=== PATIENT | female | born 1930 ===

== ENCOUNTER 2018-02-17 08:03 | Inpatient (IN) ==
[2018-02-17] MEDS ORDERED: *HR* Bivalirudin 250 MG VIAL IVC ONE (08:13)
[2018-02-17] MEDS ORDERED: ISOVUE-370 200 ML INFUS..BTL ONE (08:22)
[2018-02-17] MEDS ORDERED: Nitroglycerin 1,000 MCG/10 ML VIAL IV ONE (08:22)
[2018-02-17] MEDS ORDERED: Heparin 1,000 UNITS/500 mL 500 ML ONE (08:22)
[2018-02-17] MEDS ORDERED: *HR* Heparin 10,000 UNIT/10 ML VIAL ONE (08:22)
[2018-02-17] MEDS ORDERED: 0.9 % Sodium Chloride 1,000 ML ONE ×2 (08:22→16:44)
[2018-02-17] MEDS ORDERED: *HR* Midazolam HCl 2 MG/2 ML VIAL ONE (08:25)
[2018-02-17] MEDS ORDERED: *HR* FentaNYL (PF) 100 MCG/2 ML VIAL ONE (08:31)
--- NOTE | 2018-02-17 09:39 | Invasive Diagnostic Lab Proc ---
Name: JAKOB MURRELL Date of Study: 02/17/2018 Date: 1930 Ht: 61.0in Medical Record#: [id number] Age: 87 Wt: 139.00lb Gender: Female BSA: 1.62 Order #: [id number] BMI: 26.24 Physicians Procedure Physician: Irene Metzger MD, [facility] Referring MD: Referring MD: Staff Name Position Time In Abby Norton RT 08:28 AM Ulisses Irizarry RN Traffic Division Commanding Officer 08:28 AM Marci Burciaga RN Monitor 08:28 AM Indications Indication STEMI Procedures Performed Procedure PRQ CARD REVASC WI 1 VSL L HRT ARTERY/VENTRICLE ANGIO Pre-Procedure Checklist Informed consent is complete signed and on chart. H&P is on chart. ID band is on and ID verified with patient. Patient NPO for procedure The procedure was described for the patient and questions were answered. Blood Pressure: 133/67 ECG is on chart. Rhythm: Atrial Fibrillation Plan of Care Patient will tolerate the procedure without complications. Adequate level of comfort will be maintained. Hemodynamics will remain stable Patient will recover from procedure without complications. Respiratory function will be maintained. Cardiac rhythm will remain stable. Patient temperature will be maintained. Patient and/or family have verbalized understanding of the procedure. Patient Education Chief Complaint/Reason for Test: Cardiac Cath Developmental Category: Geriatric (65+ years) Developmentally Appropriate for Age: Yes Learning Barriers: None Education Needs: Procedure Education Method: Verbal Information Taught: Cardiac Cath Educational Evaluation: Able to repeat information Intravenous Access Time IV Size Location DC'd Fluid/Drip Rate Units RN 08:28 AM 20g 1 1/4" Patent On Arrival Lt Antecubital 0.9NaCl ml/hr Ulisses Irizarry RN 08:28 AM 20g 1 1/4" Patent On Arrival Lt Hand Ulisses Irizarry RN Allergies NSAIDS (Non-Steroidal Anti-Inflamma Penicillins Sulfa (Sulfonamide Antibiotics) Vital Signs Time BP (mmHg) HR (bpm) O2 Sat. RR (bpm) LOC 08:34 AM / % 5 = Fully awake and oriented or at pre-proc level 08:34 AM / % 4 = Oriented but drowsy 08:49 AM / % 5 = Fully awake and oriented or at pre-proc level 08:31 AM 133 / 67 113 99 % 20 08:33 AM 122 / 60 100 98 % 9 08:35 AM 126 / 53 100 95 % 10 08:37 AM 114 / 59 90 94 % 15 08:39 AM 113 / 53 94 95 % 11 08:42 AM 116 / 61 92 96 % 12 08:43 AM 119 / 54 88 96 % 12 08:45 AM 115 / 55 98 96 % 11 08:47 AM 111 / 60 94 97 % 12 08:49 AM 106 / 57 86 96 % 13 08:51 AM 113 / 57 81 97 % 14 08:53 AM 107 / 53 92 98 % 17 08:55 AM 101 / 40 92 96 % 14 08:57 AM 106 / 57 85 96 % 15 08:59 AM 104 / 49 85 96 % 14 09:01 AM 91 / 43 93 94 % 13 09:04 AM 101 / 46 91 93 % 13 09:05 AM 105 / 46 86 95 % 14 09:04 AM / % 5 = Fully awake and oriented or at pre-proc level Procedural Medications Time Medication Dose Units Method Given By 08:33 AM Oxygen 2 L/min nasal cannula Ulisses Irizarry RN 08:33 AM Versed 1 mg Intravenous Ulisses Irizarry RN 08:33 AM Fentanyl 25 mcg Intravenous Ulisses Irizarry RN 08:37 AM Lidocaine 2% 12 ml Subcutaneous Irene Metzger MD, FACC 08:43 AM Angiomax 0.75mg/kg bolus: 10 ml Intravenous Ulisses Irizarry RN 08:43 AM Angiomax 1.75mg/kg/hr: 23 ml/hr Intravenous Ulisses Irizarry RN 08:59 AM Nitroglycerin 200 mcg Intracoronary Irene Metzger MD, FACC ASA Classification: Emergent Procedure: ASA score is assumed Ludin Score Preprocedure Postprocedure Activity 2- Moves 4 extremities sustained head lift Activity 2- Moves 4 extremities sustained head lift Circulation 2- SBP +/= 20 points of pre-anesthetic level Circulation 2- SBP +/= 20 points of pre-anesthetic level Consciousness 2- Awake and alert oriented x 3 Consciousness 2- Awake and alert oriented x 3 O2 Saturation 2- Able to maintain O2 satruation of 92% on room air O2 Saturation 2- Able to maintain O2 satruation of 92% on room air Respiratory 2- Able to deep breathe and cough well Respiratory 2- Able to deep breathe and cough well Total Score 10 Total Score 10 Contrast Agent: Isovue Diagnostic Contrast: 153 ml Total Contrast: 153 ml Fluoro Dose: 9311 mGy Procedure Log Time Note Enter By 08:27 AM Physican paged/called 08:27. [email or web address] 08:27 AM Pt arrived to clinical laboratory manager 2 at 08:27 [email or web address] 08:28 AM Abby Norton RT Position: Time in: 08:28 [email or web address] 08:28 AM Ulisses Irizarry RN Position: Traffic Division Commanding Officer Time in: 08:28 [email or web address] 08:28 AM Marci Burciaga RN Position: Monitor Time in: 08:28 [email or web address] 08:28 AM Patient charges- Angio tray pack, Navilyst 3mm J, Pulse Oximetry and ACIST tubing and transducer [email or web address] 08:29 AM Case Delayed No [email or web address] 08:31 AM Vitals capture started with the following parameters, Patient=Adult, Interval=5 min, Initial Hfjzjwxx=808 mmHg, Deflation Rate=5 mmHg, Cuff placed on Right Arm 08:31 AM RP=239 bpm, GIAI=494/67 mmhg, SpO2=99.0 %, Gtgn=417 B/min, EtCO2=35 mmHg, Comment=Afib 08:32 AM Physician arrived 08:32 [email or web address] 08:32 AM Meet and greet completed [email or web address] 08:32 AM Recorded ECG: NQ=653 Condition=Condition 1 08:33 AM Sign in performed according to hospital policy. Informed consent was obtained. [email or web address] 08:33 AM Procedure start 08:33 [email or web address] 08:33 AM Time: 08:33 Oxygen on at 2 L/min per nasal cannula by Ulisses Irizarry RN [email or web address] 08:33 AM Time: 08:33 Versed 1 mg Intravenous Given by Ulisses Irizarry RN [email or web address] 08:33 AM AG=054 bpm, ADYZ=532/60 mmhg, SpO2=98.0 %, Resp=9 B/min, EtCO2=35 mmHg, Comment=Afib 08:33 AM Time: 08:33 Fentanyl 25 mcg Intravenous Given by Ulisses Irizarry RN [email or web address] 08:33 AM Time: 08:33 Patient comfortable and pain free: Yes [email or web address] 08:34 AM Time: 08:34LOC: 5 = Fully awake and oriented or at pre-proc level [email or web address] 08:34 AM Clinical Presentation: STEMI or equivalent [email or web address] 08:34 AM Recorded ECG: HR=93 Condition=Condition 1 08:35 AM Pressure channel 1 zeroed. 08:35 AM WQ=082 bpm, JCJH=334/53 mmhg, SpO2=95.0 %, Resp=10 B/min, EtCO2=35 mmHg, Comment=Afib 08:36 AM Time out was performed according to hospital policy. Conscious sedation and anesthesia was achieved (see medication log with in this report above) [email or web address] 08:36 AM Critical cardiac patient with acute WI was brought emergently to the cardiac labor commissioner for immediate coronary angiography and intervention if clinically indicated. [email or web address] 08:37 AM Time: 08:37 12 ml Lidocaine 2% to right groin Subcutaneous Given by Irene Metzger MD, [facility] [email or web address] 08:37 AM HR=90 bpm, RUMG=996/59 mmhg, SpO2=94.0 %, Resp=15 B/min, EtCO2=32 mmHg, Comment=Afib 08:38 AM Access obtained by percutaneous puncture. 6Fr 10cm [place] sheath placed in right Femoral artery. [id number] [email or web address] 08:38 AM 5Fr FL 4 [email or web address] 08:38 AM 0.035 145cm Navilyst 3mmJ wire [id number] [email or web address] 08:38 AM LCA angiography performed in multiple views. [email or web address] 08:38 AM Recorded Pressure: Ao, HR=91, Condition=Condition 1 (Aorta) Ao 90/52/71 08:39 AM HR=94 bpm, GPTG=656/53 mmhg, SpO2=95.0 %, Resp=11 B/min, EtCO2=35 mmHg, Comment=Afib 08:40 AM Recorded Pressure: Ao, HR=96, Condition=Condition 1 (Aorta) Ao 91/53/71 08:41 AM [email or web address] 08:42 AM 5Fr FR 4 catheter [facility] over the wire [email or web address] 08:42 AM RCA angiography performed in multiple views. [email or web address] 08:42 AM HR=92 bpm, LTWM=431/61 mmhg, SpO2=96.0 %, Resp=12 B/min, EtCO2=35 mmHg, Comment=Afib 08:42 AM Recorded Pressure: Ao, HR=89, Condition=Condition 1 (Aorta) Ao 94/55/73 08:43 AM Catheter removed [email or web address] 08:43 AM Time: 08:43 Angiomax 0.75mg/kg bolus: 10 ml Intravenous Given by Ulisses Irizarry RN Carroll pump [email or web address] 08:43 AM HR=88 bpm, DAPW=306/54 mmhg, SpO2=96.0 %, Resp=12 B/min, EtCO2=32 mmHg, Comment=Afib 08:44 AM Time: 08:43 Angiomax 1.75mg/kg/hr: 23 ml/hr Intravenous Given by Ulisses Irizarry RN Carroll pump [email or web address] 08:44 AM PCI Status Emergency [email or web address] 08:44 AM PCI lesion in 1st Diagonal. [email or web address] 08:44 AM 6Fr XB LAD 3.5 [place] Bright-Tip guide catheter was used to cannulate the PCI vessel successfully. reused? No [email or web address] 08:45 AM .014 Prowater 180cm guide wire across target lesion- successful. reused? No [email or web address] 08:45 AM HR=98 bpm, XBVE=020/55 mmhg, SpO2=96.0 %, Resp=11 B/min, EtCO2=35 mmHg, Comment=Afib 08:45 AM Coronary Dominance: right [email or web address] 08:46 AM Recorded Pressure: Ao, AN=624, Condition=Condition 1 (Aorta) Ao 94/58/75 08:47 AM HR=94 bpm, MUVG=624/60 mmhg, SpO2=97.0 %, Resp=12 B/min, EtCO2=35 mmHg, Comment=Afib 08:48 AM 2.0 mm x 15 mm Emerge Monorail balloon across target lesion- successful. reused? No [email or web address] 08:48 AM Recorded Pressure: Ao, HR=88, Condition=Condition 1 (Aorta) Ao 91/49/68 08:48 AM Balloon inflated @ 6 valdo for 20 seconds [email or web address] 08:49 AM Time: 08:34LOC: 4 = Oriented but drowsy [email or web address] 08:49 AM Time: 08:33 Patient comfortable and pain free: Yes [email or web address] 08:49 AM HR=86 bpm, GGFR=283/57 mmhg, SpO2=96.0 %, Resp=13 B/min, EtCO2=32 mmHg, Comment=Afib 08:50 AM Balloon inflated @ 8 valdo for 20 seconds [email or web address] 08:51 AM Balloon inflated @ 10 valdo for 30 [email or web address] 08:51 AM HR=81 bpm, UJNC=257/57 mmhg, SpO2=97.0 %, Resp=14 B/min, EtCO2=32 mmHg, Comment=Afib 08:53 AM HR=92 bpm, FAYE=064/53 mmhg, SpO2=98.0 %, Resp=17 B/min, EtCO2=32 mmHg, Comment=Afib 08:54 AM Balloon catheter removed intact. [email or web address] 08:55 AM HR=92 bpm, NJGY=493/40 mmhg, SpO2=96.0 %, Resp=14 B/min, EtCO2=32 mmHg, Comment=Afib 08:56 AM 2.25mm x 16mm Synergy drug-eluting stent across target lesion- successful Lot #[id number] [email or web address] 08:57 AM HR=85 bpm, MNQH=309/57 mmhg, SpO2=96.0 %, Resp=15 B/min, EtCO2=32 mmHg, Comment=Afib 08:57 AM Stent deployed @ 11 valdo for 30 seconds [email or web address] 08:59 AM Time: 08:59 Nitroglycerin 200 mcg Intracoronary Given by [facility] MD, [facility] 08:59 AM HR=85 bpm, UJAS=591/49 mmhg, SpO2=96.0 %, Resp=14 B/min, EtCO2=32 mmHg, Comment=Afib 09:01 AM Stent delivery system removed intact. [email or web address] 09:01 AM Guide wire removed intact. [email or web address] 09:01 AM Guide catheter removed intact. [email or web address] 09:01 AM Pressure channel 1 zero failed. 09:01 AM 5Fr Pigtail catheter [facility] the [email or web address] 09:01 AM Catheter crossed the aortic valve and was selectively placed in the left ventricle. Pressures recorded on pullback for left heart catheterization. [email or web address] 09:01 AM Pressure channel 1 zeroed. 09:01 AM Bolus angiogram of left Ventricle complete: 8 ml/sec for a total of 24 mls [email or web address] 09:01 AM Recorded Pressure: LV, HR=86, Condition=Condition 1 (Left Ventricle) LV 87/2/9 09:01 AM HR=93 bpm, NIBP=91/43 mmhg, SpO2=94.0 %, Resp=13 B/min, EtCO2=35 mmHg, Comment=Afib 09:02 AM Recorded Pressure: LV, Ao, HR=89, Condition=Condition 1 (Left Ventricle) LV 73/21/21, (Aorta) Ao 71/47/59 09:03 AM Catheter removed [email or web address] 09:04 AM Bolus angiogram of right Femoral complete: 4 ml/sec for a total of 7 mls [email or web address] 09:04 AM HR=91 bpm, PZHW=813/46 mmhg, SpO2=93.0 %, Resp=13 B/min, EtCO2=35 mmHg, Comment=Afib 09:04 AM Time: 08:49 Patient comfortable and pain free: Yes [email or web address] 09:04 AM Time: 08:49LOC: 5 = Fully awake and oriented or at pre-proc level [email or web address] 09:04 AM Procedure completed at 09:04 02/17/2018 [email or web address] 09:05 AM Did you address REGINA flow and Dominance? Yes [email or web address] 09:05 AM Sign out completed: Radiation Dose 866.05 mGy, 9311.03 cGy/cm2 Fluoro Time: 8.7 Isovue 370 - 200ml contrast 153 ml given by Irene Metzger MD, [facility]. Complications: None. The patient was discharged out of the labor commissioner in stable condition. Cardiac Rehab Consult needed: YesConfirmed administered medications: Yes [email or web address] 09:05 AM HR=86 bpm, KPKH=640/46 mmhg, SpO2=95.0 %, Resp=14 B/min, EtCO2=35 mmHg, Comment=Afib 09:07 AM Isovue 370 - 200ml,1 Bottle(s) used. [email or web address] 09:07 AM Sheath left in place to be pulled on floor/holding area [email or web address] 09:14 AM Lesion found in 1st Diagonal. Pre Stenosis: 100 Pre REGINA Flow: 0: No Flow/No perfusion [email or web address] 09:15 AM Lesion found in Proximal RCA. Pre Stenosis: 40 [email or web address] 09:15 AM Lesion found in Mid RCA. Pre Stenosis: 25 [email or web address] 09:15 AM Lesion found in Proximal LMCA. Pre Stenosis: 40 [email or web address] 09:15 AM Lesion found in Proximal LAD. Pre Stenosis: 40 [email or web address] 09:15 AM Lesion found in Proximal Circumflex. Pre Stenosis: 30 [email or web address] 09:15 AM Lesion found in Ramus. Pre Stenosis: 20 [email or web address] 09:16 AM Left Main Coronary Artery with 40% stenosis [email or web address] 09:16 AM Proximal Left Anterior Descending Coronary Artery with 40% stenosis. [email or web address] 09:17 AM Mid/Distal Left Anterior Descending Coronary Artery and diagonal branches with 100% stenosis. [email or web address] 09:17 AM Circumflex, Obtuse Marginal, Left Posterior Descending, and Left Posterolateral Coronary Arteries with 30 % stenosis. [email or web address] 09:17 AM Ramus with 20% stenosis. [email or web address] 09:17 AM Right Coronary, Right Posterior Descending Arteries with Right Posterolateral and Acute Marginal branches with 40 % stenosis. [email or web address] 09:18 AM Estimated Blood Loss: minimal [email or web address] 09:18 AM Post ECG Atrial Fibrillation [email or web address] 09:18 AM Post Blood Pressure 105/46 [email or web address] 09:19 AM 09:18 Post Pulses Bilateral DP & PT 1+ [email or web address] 09:19 AM Information taught Cardiac Cath and PCI [email or web address] 09:19 AM Education needs Procedure, Plan of Care, and Safe & Effective Use of Medications [email or web address] 09:19 AM Time: 09:04LOC: 5 = Fully awake and oriented or at pre-proc level [email or web address] 09:19 AM Time: 09:04 Patient comfortable and pain free: Yes [email or web address] 09:19 AM Learning barriers :None [email or web address] 09:19 AM Education Methods Verbal [email or web address] 09:19 AM Education evaluation Able to repeat information [email or web address] 09:20 AM Site status No bleeding/hematoma - Rt Groin as reported by Abby Norton RT at 09:19 [email or web address] 09:20 AM Opsite applied [email or web address] 09:20 AM Report given to Rosario GOMEZ Pt taken to ICU Room #8. 09:20 [email or web address] 09:22 AM Plavix, Effient or Brilinta given Yes at Nath [email or web address] 09:22 AM Delay to floor No [email or web address] 09:22 AM Patient out of room: 09:22 [email or web address] 09:22 AM Family placed in consult room. [email or web address] 09:22 AM Complications: None [email or web address] Complications Complication None Hemodynamics Pressures Site Systolic/A Wave Diastolic/V Wave Mean AO 90 52 71 AO 91 53 71 AO 94 55 73 AO 94 58 75 AO 91 49 68 LV 87 2 9 LV 73 21 21 AO 71 47 59 Post Procedure Information Blood Pressure: 105/46 mmHg Rhythm: Atrial Fibrillation Post procedural instructions were given Site Checks Time Location Status Staff Sheath In? Note 09:19 AM Rt Groin No bleeding/hematoma Abby Norton RT Pulses Time Site Pre-Procedure Post-Procedure Note 02/17/2018 8:28:00 AM Bilateral DP & PT 1+ 02/17/2018 8:28:00 AM Bilateral radial 2+ 9:18:00 AM Bilateral DP & PT 1+ Updated by Luz Wisdom, RT(R) on 02/17/2018 9:28:58 AM electronically signed on 02/17/2018 9:29:51 AM with status of Final
--- NOTE | 2018-02-17 09:41 | Cardiology History & Physical ---
Addendum entered and electronically signed by Irene Metzger MD 02/17/18 15:29: I have personally performed a face to face evaluation on this patient. I have reviewed and agree with the care plan. History and Exam by me shows: Pt presents with acute lateral STEMI. Taken emergently to cardiac catheterization lab- had 100% occluded diagonal 1 with acute thrombus. Successful PCI with CLOTILDE. EF 40%. Nonobstructive disease in RCA, Cx, LAD. DAPT. Further recommendations pending clinical course. Original Note: Date of Encounter: 02/17/18 Time of Encounter: 09:37 Assessment and Plan (1) STEMI (ST elevation myocardial infarction) Current Visit: Yes Status: Acute Per cardiology: -Admitted from outside facility with acute lateral STEMI. -Transferred to [facility] for emergent LHC, risk versus benefits of LHC explained to patient who is agreeable to proceed. -Troponin 0.04 outside facility. -Further recommendations pending LHC. -Will check TTE. -Will continue to monitor. -Discussed and reviewed with patient and daughter. Qualifiers: Involved coronary artery: other coronary artery Qualified Code(s): I21.29 - ST elevation (STEMI) myocardial infarction involving other sites (2) CKD (chronic kidney disease) Current Visit: Yes Status: Chronic Per cardiology: -Known CKD, creatinine from outside facility 1.2 -Will continue to monitor. Qualifiers: Chronic kidney disease stage: unspecified stage Qualified Code(s): N18.9 - Chronic kidney disease, unspecified History of Present Illness Chief complaint: Chest pain HPI: Ms. MURRELL is a 87 year old female with a relevant past medical history of rheumatoid arthritis, CKD who presented to [facility] with complaints of chest pain. Per daughter, patient was in her normal state of health, last night and went to bed. Patient awoke this morning arounf 0530 complaining of chest pain. Reports associated nausea, diaphoresis. Patient called for her daughter. Daughter encouraged her to call the squad and squad was called around 0630. Patient was taken to [facility] where ECG showed acute lateral STEMI and patient was transferred emergently to [facility] for emergent LHC. Past Med Surg Social Fam HX - Past Medical History Attestation: Yes The following information was validated with the patient. Source: patient, obtained from family Medical history: RA, renal disease Psychiatric history: no psych history - Past Surgical History Surgical History: non-contributory - Social History Smoking Status: Never smoker Alcohol use: none Drug use: none Current living situation: Home, With Family Activity Level: Independent ambulation Recent Out of Country Travel Within the Last 8 Weeks: No Exposure or Possible Exposure to Illness During Travel: No - Additional Family History Additional family history: Non-contributory Medications and Allergies Allergy/AdvReac Type Severity Reaction Status Date / Time NSAIDS (Non-Steroidal Allergy See Verified 02/17/18 08:11 Anti-Inflamma Comments Penicillins Allergy See Verified 02/17/18 08:11 Comments Sulfa (Sulfonamide Allergy See Verified 02/17/18 08:11 Antibiotics) Comments All Systems Review: The remainder of the systems were reviewed and are negative - Cardiovascular Cardiovascular: as per HPI, chest pain at rest, diaphoresis - Gastrointestinal Gastrointestinal: nausea Physical Examination Vital Signs Pulse Rate 81 02/17/18 09:25 Temperature 96.2 F L 02/17/18 09:39 Pulse Rate 89 02/17/18 09:40 Respiratory Rate 16 02/17/18 09:39 Blood Pressure 108/69 02/17/18 09:39 O2 Sat by Pulse Oximetry 96 02/17/18 09:39 General: Conversant, No Apparent Distress HEENT: Atraumatic, Normocephaly, Mucus Membranes Moist Neck: No JVD, Normal carotid pulses Cardiac: Reg Rate and Rhythm, Normal S1 and S2, No Murmur Lungs: Normal Breath Sounds, No Wheeze, Rales, Rhonchi Neuro: Alert and responsive, No focal deficits noted Abdomen: Soft, Non-Tender Skin: No rashes noted on visualized skin Musculoskeletal: No Chest Wall Tenderness Extremities: No Clubbing, No Cyanosis, No Edema, Normal Pulses Results - Imaging and Cardiology Echo: pending Cardiac cath: pending - EKG Interpretation EKG results cardiology: personally reviewed (ECG with acute lateral STEMI)
[2018-02-17] MEDS ORDERED: Nitroglycerin 0.4 MG TAB.SUBL SL PRN (10:29)
[2018-02-17] MEDS ORDERED: *HR* Morphine 2 MG/ML SYRINGE IVP PRN (10:29)
[2018-02-17] MEDS ORDERED: *HR* Atropine Sulfate 1 MG/10 ML SYRINGE ONE (16:43)
[2018-02-17 18:12] LABS: Basophils % 0.1 %; Hematocrit 31.2 % (35.3-44.9); Hemoglobin 10.8 g/dL (11.5-15.4); Immature Granulocytes % 0.3 % (0-4); Lymphocytes # 0.3 K/mcL (0.6-4.6); Lymphocytes % 4.3 %; Mean Corpuscular HGB Conc 34.6 g/dL (31.6-35.5); Mean Corpuscular Hemoglobin 30.5 pg (28.0-33.3); Mean Corpuscular Volume 88.1 fL (83.0-100.0); Mean Platelet Volume 10.7 fL (9.4-12.4); Monocytes # 0.3 K/mcL (0.0-1.3); Monocytes % 4.3 %; Neutrophils # 6.1 K/mcL (1.6-8.9); Platelet Count 267 K/mcL (140-400); Red Blood Count 3.54 M/mcL (3.82-4.97)
[2018-02-17 18:44] LABS: Calcium 9.3 mg/dL (8.6-10.3); Potassium 4.2 mEq/L (3.5-5.1)
[2018-02-17] MEDS ORDERED: Perflutren Lipid Microsphere 1.3 ML in 0.9 % Sodium Chloride 8.7 ML IVP ONE (21:07)
[2018-02-18 03:43] LABS: Basophils % 0.4 %; Eosinophils % 0.1 %; Hematocrit 30.4 % (35.3-44.9); Hemoglobin 10.3 g/dL (11.5-15.4); Immature Granulocytes % 0.7 % (0-4); Immature Platelets 5.6 % (1.1-6.1); Lymphocytes # 0.9 K/mcL (0.6-4.6); Lymphocytes % 11.5 %; Mean Corpuscular HGB Conc 33.9 g/dL (31.6-35.5); Mean Corpuscular Hemoglobin 29.9 pg (28.0-33.3); Mean Corpuscular Volume 88.1 fL (83.0-100.0); Mean Platelet Volume 10.9 fL (9.4-12.4); Monocytes # 1.1 K/mcL (0.0-1.3); Neutrophils # 5.6 K/mcL (1.6-8.9); Platelet Count 264 K/mcL (140-400); Red Blood Count 3.45 M/mcL (3.82-4.97); Red Cell Distribution Width 12.2 % (11.5-14.5); Segmented Neutrophils % 73.3 %
[2018-02-18 04:00] LABS: Calcium 9.1 mg/dL (8.6-10.3)
[2018-02-18] MEDS ORDERED: Ipratropium/Albuterol Neb 3 ML IH PRN (05:03)
[2018-02-18] MEDS ORDERED: Furosemide 20 MG/2 ML VIAL IVP ONE ×2 (05:35→17:00)
--- NOTE | 2018-02-18 05:59 | Event Note ---
Date of Encounter: 02/18/18 Time of Encounter: 05:35 At around 0500 I was asked by nurse to evaluate the patient. Earlier in the night, she had two episodes where her oxygen saturation decreased to low 80s, requiring high flow oxygen. During both episodes, it took about 20 minutes for the patient's oxygen saturation to come back up to 90s. Patient ended up needing 15L oxymask and her oxygen saturation was 98%. I was told by nurse that she had spoken to Dr. Lopes on the phone, who wanted medicine team to evaluate the patient. Upon my examination, patient was laying in bed comfortably wearing oxymask. She denies chest pain, chest tightness, or cough. She does report intermittent shortness of breath. Upon auscultation of the lungs, she mostly had overall decreased breath sounds with fine rales present on the left side. My initial concern was that the patient's shortness of breath was due to fluid overload. Stat portable Xray was ordered, which showed increased vascular markings with pulmonary edema and pleural effusions. Patient was given 1 DuoNeb with improvement in her symptoms. one time dose of 20mg IV lasix ordered. Dr. Pan examined patient around 0530 and agrees with this plan. Further management of patient per cardiology.
[2018-02-18] MEDS: Aspirin 81 MG TAB.CHEW PO SCH (08:01)
--- NOTE | 2018-02-18 11:57 | Cardiology Progress Note ---
Addendum entered and electronically signed by Donte Parada MD 02/18/18 15:28: I have personally performed a face to face evaluation on this patient. I have reviewed and agree with the documented findings and care plan as documented by the [facility] [place]. History and Exam by me shows: 87-year-old female with lateral wall AK status post CLOTILDE to D1 yesterday. Doing well. No chest pain palpitations or shortness of breath. Short run of NSVT noted on telemetry. LVEF 30-35%. Continue dual antiplatelets, ROSANA inhibitor and beta mike and titrate upwards as blood pressure allows. Moderate dose statin. Monitor and replace electrolytes keeping potassium above 4 and magnesium above 2. Outpatient referral for cardiac rehabilitation. Thanks, Donte Parada MD Original Note: Date of Encounter: 02/18/18 Time of Encounter: 09:00 Assessment and Plan (1) STEMI (ST elevation myocardial infarction) Current Visit: Yes Status: Acute Per cardiology: -Admitted from outside facility with acute lateral STEMI. -Transferred to [facility] for emergent LHC. -LHC with 40% proximal left main, 40% proximal LAD, 100% diagonal 1 with CLOTILDE placed, 30% proximal circumflex aneurysmal, 40% proximal RCA, 25% mid RCA. -Denies current chest pain. -Right groin access site without hematoma. Dressing clean, dry, intact. -ON asa, plavix, statin, BB. Educated on dual anti-platelet therapy uninterrup clau for at least one year, states understanding. -TTE with LVEF 30-35%. -Will continue to monitor. Qualifiers: Involved coronary artery: other coronary artery Qualified Code(s): I21.29 - ST elevation (STEMI) myocardial infarction involving other sites (2) CKD (chronic kidney disease) Current Visit: Yes Status: Chronic Per cardiology: -Known CKD, creatinine from outside facility 1.2 -Creatinine today 1.25. -Will continue to monitor. Qualifiers: Chronic kidney disease stage: unspecified stage Qualified Code(s): N18.9 - Chronic kidney disease, unspecified (3) NSVT (nonsustained ventricular tachycardia) Current Visit: Yes Status: Acute Per cardiology: -Overnight, had one run of NS VT, lasting 13 beats. -K 4.0. -Mg noted to be 1.7. -On BB. -Will increase BB. -Will give oral Mg replacement. -Recommend K >4, Mg >2. -Will re-check electrolytes in am, (4) CHF (congestive heart failure) Current Visit: Yes Status: Acute Per cardiology: -Episode of repsiratory distress this am. -CHest x-ray with CHF. -BNP 1300s. -Was given IV lasix x1. -Reprots symptom improvement. However, rhonchi noted upon respiratory exam. -TTE with LVEF 30-35%, severe segmental LV systolic dysfunction, moderately dilated LA, midl AR, mild-moderate MR, moderate TR, mild-moderate MO, mild PH. -ON BB, rosana inhibitor. -Will give another IV lasix this evening. -Will increase BB, and switch to toprol in am. -Strict i/so, fluids restriction, daily weights. -Recommend repeating TTE in 45 days post [place]. Qualifiers: Heart failure type: systolic Heart failure chronicity: acute Qualified Code(s): I50.21 - Acute systolic (congestive) heart failure (5) A-fib Current Visit: Yes Status: Acute Per cardiology: -A.fib noted per telemetry, HR controlled. -no previoous history of a.fib. -[id number] score 5 (age3, gender, CHF, vascular disease). -Currently on BB, asa. -Will obtain 12 lead ECG to confirm a.fib. 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 -Will continue to monitor. Qualifiers: Atrial fibrillation type: unspecified Qualified Code(s): I48.91 - Unspecified atrial fibrillation Discussion w patient/family: The assessment and plan as outlined above was discussed with the patient and/or family members who expressed understanding and agreement. All questions were answered. Thank you for involving us in the care of your patient. Please call with any questions. Discussed and reviewed with . Subjective Principal diagnosis: STEMI Interval history: Patient denies chest pain this morning. Notes reviewed with acute episode of respiratory distress this am. Currently on oximask, patient reports breathing is much improved. Objective Vital Signs, Last 4 Hours Pulse Resp BP Pulse Ox 02/18/18 11:00 70 69 125/64 96 02/18/18 10:00 71 16 125/70 100 02/18/18 09:00 80 18 95/67 99 02/18/18 08:00 99 20 144/90 95 General: Conversant, No Apparent Distress HEENT: Atraumatic, Normocephaly, Mucus Membranes Moist Neck: No JVD, Normal carotid pulses Cardiac: Reg Rate and Rhythm, Normal S1 and S2, No Murmur Lungs: Other (Rhonchi noted throughout. ) Neuro: Alert and responsive, No focal deficits noted Abdomen: Soft, Non-Tender Skin: No rashes noted on visualized skin, Other (Right groin access site without hematoma. Dressing clean, dry, intact. ) Musculoskeletal: No Chest Wall Tenderness Extremities: No Clubbing, No Cyanosis, No Edema, Normal Pulses Results 02/18/18 03:29 02/18/18 03:29 Lab Results Impressions Echocardiogram 02/17/18 10:30 Impressions: LVEF 30-35%. Severe segmental left ventricular systolic dysfunction. Mild concentric left ventricular hypertrophy. Indeterminate diastolic function. Normal right ventricular structure and function. Moderately dilated left atrium. Mild aortic regurgitation. Mild-moderate mitral regurgitation. Moderate tricuspid regurgitation. Mild-moderate pulmonic regurgitation. Mild pulmonary hypertension. Cardiology team notified. Left Ventricular Wall Motion: Rest Echo Findings The apex, apical anterior, mid anterior, basal anterior, apical septal, apical lateral, mid anterior lateral, basal anterior lateral and mid anterior septal jones were hypokinetic. All other wall segments showed normal motion. Findings: Study Quality * Technically adequate exam. ECG Findings * Atrial fibrillation, RVR Left Ventricle * LVEF 30-35%. * Normal LV chamber size. * Mild concentric left ventricular hypertrophy. * Severe segmental left ventricular systolic dysfunction. * Indeterminate diastolic function. * Definity echo contrast was used. * There is no LV thrombus. Right Ventricle * Normal right ventricular structure and function. Left Atrium * Moderately dilated left atrium. Right Atrium * Normal right atrial size. Interatrial Septum * Interatrial septum not well evaluated. Aortic Valve * Normal aortic valve structure. * Trileaflet aortic valve. * Mild aortic regurgitation. * No aortic stenosis. Mitral Valve * Moderately calcified mitral valve leaflets. * Mild-moderate mitral regurgitation. * Mild mitral annular calcification Tricuspid Valve * Normal tricuspid valve structure. * No tricuspid stenosis. * Moderate tricuspid regurgitation. * Estimated RVSP is 40 mmHg. * Estimated RA pressure is 5 mmHg. * Mild pulmonary hypertension. Pulmonic Valve * Normal pulmonic valve structure. * No pulmonic stenosis. * Mild-moderate pulmonic regurgitation. Aorta * Normally sized aortic root. Pericardium * The pericardium appears normal. IVC * Normal IVC dimensions and inspiratory collapse. Chest X-Ray 02/18/18 04:53 IMPRESSION: Findings likely represent congestive heart failure. D/ / Tera Carbone MD / Tera Carbone MD Interpreting Provider: Tera Carbone MD Active Medications Acetaminophen (Tylenol) 500 mg PO Q6HR PRN PRN Reason: Mild Pain Stop: 08/19/18 10:30 Aspirin (Aspirin) 81 mg PO DAILY [facility] Stop: 08/20/18 09:01 Last Admin: 02/18/18 08:01 Dose: 81 mg Atorvastatin Calcium (Lipitor) 40 mg PO HS [facility] Stop: 08/19/18 21:01 Last Admin: 02/17/18 21:34 Dose: 40 mg Clopidogrel Bisulfate (Plavix) 75 mg PO DAILY [facility] Stop: 08/20/18 09:01 Last Admin: 02/18/18 08:01 Dose: 75 mg Furosemide (Lasix) 20 mg IVP ONCE ONE Stop: 02/18/18 17:01 Lisinopril (Zestril) 2.5 mg PO DAILY [facility] Stop: 08/20/18 09:01 Last Admin: 02/18/18 08:01 Dose: 2.5 mg Magnesium Oxide (Mag-Ox) 400 mg PO BID [facility]; Protocol Stop: 08/20/18 12:01 Metoprolol Succinate (Toprol Xl) 50 mg PO DAILY [facility] Stop: 08/21/18 09:01 Metoprolol Tartrate (Lopressor) 50 mg PO ONCE ONE Stop: 02/18/18 21:01 Morphine Sulfate (Morphine Sulfate) 4 mg IVP Q3H PRN PRN Reason: Severe Pain (7-10) Stop: 08/19/18 10:30 Nitroglycerin (Nitroglycerin) 0.4 mg SL Q5MIN PRN PRN Reason: Chest Pain Stop: 08/19/18 10:30 Laboratory Tests 02/18/18 02/18/18 02/18/18 03:29 03:29 03:29 Hgb 10.3 L Potassium 4.0 Creatinine 1.25 H Magnesium B-Natriuretic Peptide 1382 H 02/18/18 10:29 Hgb Potassium Creatinine Magnesium 1.7 B-Natriuretic Peptide - Imaging and Cardiology Chest Xray: report reviewed Echo: report reviewed Cardiac cath: report reviewed - EKG Interpretation EKG results cardiology: other (Telemetry reviewed with average HR previous 12 hours noted to be 89, a.fib. PVCs noted. One 13 beat of non-sustained VT noted.) - VTE Reasons for not Prescribing Prophylaxis: Not indicated-Anticoagulated or INR therapeutic
[2018-02-18] MEDS: Magnesium Oxide 400 MG TABLET PO SCH ×2 (12:31→19:45)
[2018-02-19 06:27] LABS: Basophils # 0.1 K/mcL (0.0-0.2); Basophils % 0.8 %; Eosinophils % 0.1 %; Hematocrit 29.7 % (35.3-44.9); Hemoglobin 10.1 g/dL (11.5-15.4); Immature Granulocytes % 0.3 % (0-4); Lymphocytes # 1.1 K/mcL (0.6-4.6); Lymphocytes % 11.7 %; Mean Corpuscular Hemoglobin 30.2 pg (28.0-33.3); Mean Corpuscular Volume 88.9 fL (83.0-100.0); Mean Platelet Volume 11.3 fL (9.4-12.4); Monocytes # 1.7 K/mcL (0.0-1.3); Monocytes % 18.2 %; Platelet Count 227 K/mcL (140-400); Red Blood Count 3.34 M/mcL (3.82-4.97); Red Cell Distribution Width 12.5 % (11.5-14.5); Segmented Neutrophils % 68.9 %
[2018-02-19 06:33] LABS: Calcium 9.1 mg/dL (8.6-10.3); Magnesium 1.8 mg/dL (1.6-2.6); Neutrophils # 6.3 K/mcL (1.6-8.9); Potassium 3.6 mEq/L (3.5-5.1)
[2018-02-19 06:45] LABS: Platelet Estimate Normal (Normal)
[2018-02-19] MEDS: Aspirin 81 MG TAB.CHEW PO SCH (08:37)
[2018-02-19] MEDS: Magnesium Oxide 400 MG TABLET PO SCH ×2 (08:37→22:15)
[2018-02-19] MEDS ORDERED: Metoprolol XL (24 HR) Succ 50 MG TAB.ER.24H PO SCH (09:00)
[2018-02-19] MEDS ORDERED: Furosemide 40 MG/4 ML VIAL IVP ONE (09:41)
[2018-02-19] MEDS ORDERED: Furosemide 40 MG TABLET PO SCH (11:00)
--- NOTE | 2018-02-19 11:00 | Cardiology Progress Note ---
Date of Encounter: 02/19/18 Time of Encounter: 08:45 Assessment and Plan (1) STEMI (ST elevation myocardial infarction) Current Visit: Yes Status: Acute Per cardiology: -Admitted from outside facility with acute lateral STEMI. -Transferred to [facility] for emergent LHC. -LHC with 40% proximal left main, 40% proximal LAD, 100% diagonal 1 with CLOTILDE placed, 30% proximal circumflex aneurysmal, 40% proximal RCA, 25% mid RCA. -Denies current chest pain. -Right groin access site without hematoma. Mild ecchymosis noted. -ON asa, plavix, statin, BB. Educated on dual anti-platelet therapy uninterrupted for at least one year, states understanding. -TTE with LVEF 30-35%. -Will transfer out of ICU today. -Will continue to monitor. Qualifiers: Involved coronary artery: other coronary artery Qualified Code(s): I21.29 - ST elevation (STEMI) myocardial infarction involving other sites (2) CKD (chronic kidney disease) Current Visit: Yes Status: Chronic Per cardiology: -Known CKD, creatinine from outside facility 1.2 -Creatinine today 1.75. 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 -Will obtain records of baseline creatinine. Qualifiers: Chronic kidney disease stage: stage 3 (moderate) Qualified Code(s): N18.3 - Chronic kidney disease, stage 3 (moderate) (3) NSVT (nonsustained ventricular tachycardia) Current Visit: Yes Status: Acute Per cardiology: -02/17, had one run of NS VT, lasting 13 beats. -K 4.0. -Mg noted to be 1.8. -On BB. -No recurrence of NSVT noted. -Will give oral Mg replacement. -Recommend K >4, Mg >2. -Will re-check electrolytes in am -Will continue to monitor. (4) CHF (congestive heart failure) Current Visit: Yes Status: Acute Per cardiology: -Episode of repsiratory distress yesterday morning, flash pulmonary edema. -CHest x-ray with CHF. -BNP 1300s. -Was given IV lasix x2. -Reprots symptom improvement. -TTE with LVEF 30-35%, severe segmental LV systolic dysfunction, moderately dilated LA, midl AR, mild-moderate MR, moderate TR, mild-moderate MO, mild PH. -ON BB, loretta inhibitor. -Will add oral lasix. -Strict i/so, fluids restriction, daily weights. -Recommend repeating TTE in 45 days post [place]. Qualifiers: Heart failure type: systolic Heart failure chronicity: acute Qualified Code(s): I50.21 - Acute systolic (congestive) heart failure (5) Flash pulmonary edema Current Visit: Yes Status: Resolved Per cardiology: -Episode of flash pulmonary edema 02/18/18 Am. -see CHF as above for plan. (6) A-fib Current Visit: Yes Status: Acute Per cardiology: -A.fib noted per telemetry, HR controlled. -no previoous history of a.fib. -Asfkb4yydd score 5 (age3, gender, CHF, vascular disease). -Currently on BB, asa. -Discussed and reviewed with , if a.fib persists for >48 hours post [place], will recommend joint terminal attack controller anticoagulation. -Will continue to monitor. Qualifiers: Atrial fibrillation type: unspecified Qualified Code(s): I48.91 - Unspecified atrial fibrillation Discussion w patient/family: The assessment and plan as outlined above was discussed with the patient and/or family members who expressed understanding and agreement. All questions were answered. Thank you for involving us in the care of your patient. Please call with any questions. Discussed and reviewed with . Subjective Principal diagnosis: STEMI Interval history: Patient sitting on side of bed. Denies chest pain. Reports shortness of breath is improved. Objective Vital Signs, Last 4 Hours Temp Pulse Resp BP Pulse Ox 02/19/18 09:34 83 20 94/58 100 02/19/18 08:00 99.3 F 92 24 112/57 98 02/19/18 07:47 90 02/19/18 07:00 90 20 110/61 93 General: Conversant, No Apparent Distress HEENT: Atraumatic, Normocephaly, Mucus Membranes Moist Neck: No JVD, Normal carotid pulses Cardiac: Normal S1 and S2, No Murmur, Other (Irregularly irregular) Lungs: Other (Lung sounds diminished throughout) Neuro: Alert and responsive, No focal deficits noted Abdomen: Soft, Non-Tender Skin: No rashes noted on visualized skin, Other (Right groin access site with mild ecchymosis, no hematoma. ) Musculoskeletal: No Chest Wall Tenderness Extremities: No Clubbing, No Cyanosis, No Edema, Normal Pulses Results 02/19/18 05:56 02/19/18 05:56 Lab Results Active Medications Acetaminophen (Tylenol) 500 mg PO Q6HR PRN PRN Reason: Mild Pain Stop: 08/19/18 10:30 Aspirin (Aspirin) 81 mg PO DAILY [facility] Stop: 08/20/18 09:01 Last Admin: 02/19/18 08:37 Dose: 81 mg Atorvastatin Calcium (Lipitor) 40 mg PO HS [facility] Stop: 08/19/18 21:01 Last Admin: 02/18/18 19:45 Dose: 40 mg Clopidogrel Bisulfate (Plavix) 75 mg PO DAILY [facility] Stop: 08/20/18 09:01 Last Admin: 02/19/18 08:36 Dose: 75 mg Furosemide (Lasix) 40 mg PO DAILY [facility] Stop: 08/21/18 11:01 Lisinopril (Zestril) 2.5 mg PO DAILY [facility] Stop: 08/20/18 09:01 Last Admin: 02/19/18 08:36 Dose: 2.5 mg Magnesium Oxide (Mag-Ox) 400 mg PO BID [facility]; Protocol Stop: 08/20/18 12:01 Last Admin: 02/19/18 08:37 Dose: 400 mg Metoprolol Succinate (Toprol Xl) 50 mg PO DAILY [facility] Stop: 08/21/18 09:01 Last Admin: 02/19/18 08:37 Dose: 50 mg Nitroglycerin (Nitroglycerin) 0.4 mg SL Q5MIN PRN PRN Reason: Chest Pain Stop: 08/19/18 10:30 Laboratory Tests 02/19/18 02/19/18 05:56 05:56 Hgb 10.1 L Creatinine 1.72 H - Imaging and Cardiology Chest Xray: report reviewed Echo: report reviewed Cardiac cath: report reviewed - EKG Interpretation EKG results cardiology: other (Telemetry reviewed with average HR previous 12 hours noted to be 88, a.fib. PVCs, couplets, triplets noted.) - VTE Reasons for not Prescribing Prophylaxis: Not indicated-Anticoagulated or INR therapeutic
[2018-02-19 14:11] LABS: INR 1.1; Prothrombin Time 12.2 Seconds (9.4-12.1)
[2018-02-19] MEDS ORDERED: *HR* Heparin 5,000 UNIT/ML VIAL SQ SCH (16:00)
[2018-02-19] MEDS ORDERED: Nitroglycerin 0.4 MG TAB.SUBL SL PRN (16:13)
[2018-02-19] MEDS ORDERED: Warfarin perPT PO PRN ×2 (18:00)
[2018-02-19] MEDS ORDERED: *HR* Warfarin 2.5 MG TABLET PO ONE ×2 (18:00)
[2018-02-20 05:27] LABS: Basophils # 0.1 K/mcL (0.0-0.2); Basophils % 0.6 %; Eosinophils # 0.1 K/mcL (0.0-0.6); Eosinophils % 0.6 %; Hematocrit 30.6 % (35.3-44.9); Hemoglobin 10.1 g/dL (11.5-15.4); Immature Granulocytes % 0.3 % (0-4); Lymphocytes # 1.4 K/mcL (0.6-4.6); Mean Corpuscular Volume 90.8 fL (83.0-100.0); Mean Platelet Volume 11.7 fL (9.4-12.4); Monocytes # 1.7 K/mcL (0.0-1.3); Neutrophils # 7.3 K/mcL (1.6-8.9); Platelet Count 243 K/mcL (140-400); Red Blood Count 3.37 M/mcL (3.82-4.97); Red Cell Distribution Width 12.5 % (11.5-14.5); Segmented Neutrophils % 69.5 %
[2018-02-20 05:35] LABS: INR 1.1; Prothrombin Time 12.2 Seconds (9.4-12.1)
[2018-02-20 06:32] LABS: Calcium 8.9 mg/dL (8.6-10.3)
[2018-02-20] MEDS: Aspirin 81 MG TAB.CHEW PO SCH (08:11)
[2018-02-20] MEDS: Magnesium Oxide 400 MG TABLET PO SCH ×2 (08:11→21:34)
[2018-02-20] MEDS: Metoprolol XL (24 HR) Succ 50 MG TAB.ER.24H PO SCH (08:11)
[2018-02-20] MEDS: Furosemide 40 MG TABLET PO SCH (08:11)
[2018-02-20] MEDS ORDERED: Furosemide 40 MG/4 ML VIAL IVP ONE (08:50)
--- NOTE | 2018-02-20 10:27 | Cardiology Progress Note ---
Date of Encounter: 02/20/18 Time of Encounter: 08:15 Assessment and Plan (1) STEMI (ST elevation myocardial infarction) Current Visit: Yes Status: Acute Per cardiology: -Admitted from outside facility with acute lateral STEMI. -Transferred to [facility] for emergent LHC. -LHC with 40% proximal left main, 40% proximal LAD, 100% diagonal 1 with CLOTILDE placed, 30% proximal circumflex aneurysmal, 40% proximal RCA, 25% mid RCA. -Denies current chest pain. -Right groin access site without hematoma. Mild ecchymosis noted. -ON asa, plavix, statin, BB. Educated on dual anti-platelet therapy uninterrupted for at least one year, states understanding. -TTE with LVEF 30-35%. -Will continue to monitor. Qualifiers: Involved coronary artery: other coronary artery Qualified Code(s): I21.29 - ST elevation (STEMI) myocardial infarction involving other sites (2) CKD (chronic kidney disease) Current Visit: Yes Status: Chronic Per cardiology: -Known CKD, creatinine from outside facility 1.2 -Creatinine today 1.85. 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 -Volume overloaded on exam today. -Suspect component of cardio-renal syndrome. Will give one time dose of IV lasix now -If needed, can consider nephrology consult. Qualifiers: Chronic kidney disease stage: stage 3 (moderate) Qualified Code(s): N18.3 - Chronic kidney disease, stage 3 (moderate) (3) NSVT (nonsustained ventricular tachycardia) Current Visit: Yes Status: Acute Per cardiology: -02/17, had one run of NS VT, lasting 13 beats. -K 4.0. -Mg noted to be 1.8. -On BB. -No recurrence of NSVT noted. -Will give oral Mg replacement. -Recommend K >4, Mg >2. -Will re-check electrolytes in am -Will continue to monitor. (4) CHF (congestive heart failure) Current Visit: Yes Status: Acute Per cardiology: -Episode of repsiratory distress yesterday morning, flash pulmonary edema. -CHest x-ray with CHF. -BNP 1300s. -Was given IV lasix x2. -Reprots shortness of breath today, volume overloaded on exam. Renal function increased. -TTE with LVEF 30-35%, severe segmental LV systolic dysfunction, moderately dilated LA, midl AR, mild-moderate MR, moderate TR, mild-moderate GA, mild PH. -ON BB, loretta inhibitor, lasix. -Will give one time dose of IV lasix x1 now. -Strict i/so, fluids restriction, daily weights. -Recommend repeating TTE in 45 days post [place]. Qualifiers: Heart failure type: systolic Heart failure chronicity: acute Qualified Code(s): I50.21 - Acute systolic (congestive) heart failure (5) Flash pulmonary edema Current Visit: Yes Status: Resolved Per cardiology: -Episode of flash pulmonary edema 02/18/18 Am. -see CHF as above for plan. (6) A-fib Current Visit: Yes Status: Acute Per cardiology: -A.fib noted per telemetry, HR controlled. -no previoous history of a.fib. -[id number] score 5 (age3, gender, CHF, vascular disease). -Currently on BB, asa. Started on coumadin. -Of note, patient lives in [place], consider referral to [place] coumadin clinic at discharge. -Will continue to monitor. Qualifiers: Atrial fibrillation type: unspecified Qualified Code(s): I48.91 - Unspecified atrial fibrillation Discussion w patient/family: The assessment and plan as outlined above was discussed with the patient and/or family members who expressed understanding and agreement. All questions were answered. Thank you for involving us in the care of your patient. Please call with any questions. Discussed and reviewed with Subjective Principal diagnosis: STEMI Interval history: Patient eating breakfast this morning. Denies chest pain, however reports shortness of breath. Requiring O2. Objective Vital Signs, Last 4 Hours Temp Pulse Resp BP Pulse Ox 02/20/18 08:41 98.8 F 91 20 116/70 89 General: Conversant, No Apparent Distress HEENT: Atraumatic, Normocephaly, Mucus Membranes Moist Neck: No JVD, Normal carotid pulses Cardiac: Normal S1 and S2, No Murmur, Other (Irregularly irregular) Lungs: Other (Lung sounds coarse throughout) Neuro: Alert and responsive, No focal deficits noted Abdomen: Soft, Non-Tender Skin: No rashes noted on visualized skin, Other (Right groin access site with mild ecchymosis, no hematoma. ) Musculoskeletal: No Chest Wall Tenderness Extremities: No Clubbing, No Cyanosis, Normal Pulses, Other (Mild bilateral pedal edema noted. ) Results 02/20/18 04:56 02/20/18 04:56 Lab Results Active Medications Acetaminophen (Tylenol) 500 mg PO Q6HR PRN PRN Reason: Mild Pain Stop: 08/19/18 10:30 Aspirin (Aspirin) 81 mg PO DAILY [facility] Stop: 08/20/18 09:01 Last Admin: 02/20/18 08:11 Dose: 81 mg Atorvastatin Calcium (Lipitor) 40 mg PO HS [facility] Stop: 08/19/18 21:01 Last Admin: 02/19/18 22:15 Dose: 40 mg Clopidogrel Bisulfate (Plavix) 75 mg PO DAILY [facility] Stop: 08/20/18 09:01 Last Admin: 02/20/18 08:11 Dose: 75 mg Furosemide (Lasix) 40 mg PO DAILY [facility] Stop: 08/21/18 11:01 Last Admin: 02/20/18 08:11 Dose: 40 mg Heparin Sodium (Porcine) (Heparin) 5,000 unit SQ Q8HCO [facility] Stop: 08/22/18 14:01 Lisinopril (Zestril) 2.5 mg PO DAILY [facility] Stop: 08/20/18 09:01 Last Admin: 02/20/18 08:11 Dose: 2.5 mg Magnesium Oxide (Mag-Ox) 400 mg PO BID [facility]; Protocol Stop: 08/20/18 12:01 Last Admin: 02/20/18 08:11 Dose: 400 mg Metoprolol Succinate (Toprol Xl) 50 mg PO DAILY [facility] Stop: 08/21/18 09:01 Last Admin: 02/20/18 08:11 Dose: 50 mg Nitroglycerin (Nitroglycerin) 0.4 mg SL Q5MIN PRN PRN Reason: Chest Pain Stop: 08/19/18 10:30 Potassium Chloride (Potassium Chloride) 40 meq PO DAILY [facility] Stop: 08/21/18 13:01 Last Admin: 02/20/18 08:11 Dose: 40 meq Warfarin Sodium (Coumadin Perpt) 1 each PO DAILY@1800 PRN PRN Reason: SEE COMMENTS Stop: 08/21/18 18:01 Laboratory Tests 02/19/18 02/20/18 02/20/18 05:56 04:56 04:56 Hgb 10.1 L Creatinine 1.72 H 1.85 H - Imaging and Cardiology Chest Xray: report reviewed Echo: report reviewed Cardiac cath: report reviewed - EKG Interpretation EKG results cardiology: other (Telemetry reviewed with average HR previous 12 hours noted to be 89, a.fib. PVCs, couplets noted.) - VTE Reasons for not Prescribing Prophylaxis: Not indicated-Anticoagulated or INR therapeutic Consult Discharge Plan - Plan Referrals: NONE,PCP [Primary Care Provider] -
[2018-02-20] MEDS: *HR* Heparin 5,000 UNIT/ML VIAL SQ SCH ×2 (16:51→21:34)
[2018-02-20] MEDS ORDERED: *HR* Warfarin 2.5 MG TABLET PO ONE (18:00)
[2018-02-21 03:26] LABS: Basophils # 0.1 K/mcL (0.0-0.2); Basophils % 0.9 %; Eosinophils # 0.3 K/mcL (0.0-0.6); Eosinophils % 2.9 %; Hematocrit 29.3 % (35.3-44.9); Hemoglobin 9.8 g/dL (11.5-15.4); Immature Granulocytes % 0.2 % (0-4); Lymphocytes % 22.8 %; Mean Corpuscular HGB Conc 33.4 g/dL (31.6-35.5); Mean Corpuscular Hemoglobin 30.1 pg (28.0-33.3); Mean Corpuscular Volume 89.9 fL (83.0-100.0); Mean Platelet Volume 11.7 fL (9.4-12.4); Monocytes # 1.3 K/mcL (0.0-1.3); Platelet Count 246 K/mcL (140-400); Red Blood Count 3.26 M/mcL (3.82-4.97); Red Cell Distribution Width 12.5 % (11.5-14.5); Segmented Neutrophils % 58.2 %
[2018-02-21 03:36] LABS: INR 1.1; Prothrombin Time 11.9 Seconds (9.4-12.1)
[2018-02-21 03:46] LABS: Calcium 8.7 mg/dL (8.6-10.3); Magnesium 1.9 mg/dL (1.6-2.6); Potassium 3.8 mEq/L (3.5-5.1)
[2018-02-21] MEDS: *HR* Heparin 5,000 UNIT/ML VIAL SQ SCH ×2 (05:34→17:17)
[2018-02-21] MEDS: Magnesium Oxide 400 MG TABLET PO SCH (09:26)
[2018-02-21] MEDS: Metoprolol XL (24 HR) Succ 50 MG TAB.ER.24H PO SCH (09:26)
[2018-02-21] MEDS: Furosemide 40 MG TABLET PO SCH (09:26)
[2018-02-21] MEDS: Aspirin 81 MG TAB.CHEW PO SCH (09:27)
[2018-02-21 10:56] VITALS: BP 94/47
--- NOTE | 2018-02-21 13:05 | Discharge Summary ---
- NOTES TO OUTPATIENT PROVIDER Notes to Outpatient Provider: Patient was admitted after STEMI. Ischemic cardiomyopathy. Atrial fibrillation. Orders not resulted at time of discharge: Pending orders 02/22/18 04:00 INR/PT [Prothrombin Time INR] [COAG] AM 0400 Date of Encounter: 02/21/18 Time of Encounter: 12:55 - Discharge Diagnosis (1) STEMI (ST elevation myocardial infarction) Priority: Primary Status: Acute Comments: Admitted after acute STEMI Qualifiers: Involved coronary artery: other coronary artery Qualified Code(s): I21.29 - ST elevation (STEMI) myocardial infarction involving other sites (2) CKD (chronic kidney disease) Priority: Secondary Status: Chronic Comments: Known CKD Qualifiers: Chronic kidney disease stage: stage 3 (moderate) Qualified Code(s): N18.3 - Chronic kidney disease, stage 3 (moderate) (3) NSVT (nonsustained ventricular tachycardia) Priority: Secondary Status: Resolved Comments: No recurrence of NSVT (4) CHF (congestive heart failure) Priority: Secondary Status: Acute Comments: LVEF 30-35%. Qualifiers: Heart failure type: systolic Heart failure chronicity: acute Qualified Code(s): I50.21 - Acute systolic (congestive) heart failure (5) Flash pulmonary edema Priority: Secondary Status: Resolved Comments: Resolved after IV lasix (6) A-fib Priority: Secondary Status: Acute Comments: New onset a.fib Qualifiers: Atrial fibrillation type: unspecified Qualified Code(s): I48.91 - Unspecified atrial fibrillation - Hospital Course Hospital course: Ms. MURRELL is a 87 year old female who was transferred from outside facility for STEMI. 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 Patient is on asa, plavix, statin, BB. Educated on dual anti-platelet therapy uninterrupted for at least one year, unless otherwise directed by cardiology, states understanding. TTE was performed and LVEF noted to be 30-35% new ischemic cardioyopathy. Patient is on BB, loretta inhibitor, lasix. Currently euvolemic on e xam. Recommend repeating TTE in 45 days. Life vest has been recommended and is being placed today. During hispitalization, patient has acute episode of flash pulmonary edema, that resolved after IV lasix. CHF education reviewed with patient and daughter. Patient also had atrial fibrillation during stay. HR has been controlled and patient was started on coumadin for anticoagulation. Cardiology will monitor INRs/coumadin dosing, until patient can be seen by coumadin clinic. Of note, lives in [place] and requsting referral to [facility]. Recommend patient have repeat INR drawn in 5 days, order given. Patient denies bleeding or blood loss. Educated to monitor closely for any bleeding or blood loss with triple therapy, patient and daughter state understanding. RIght groin access site with mild ecchymosis, no hematoma. RIght groin access site management education reviewed with patient and daughter. Patient has known CKD, recommend patient follow with primary stress test technician as o utpatient. Patient has required O2 during stay PRN. Patient has been qualified for O2 and being arranged per social media campaign manager. Patient is being prepped for discharge home in stable condition. I reviewed discharge education with patient and daughter at length. Patient will follow with [facility], follow up set. - Time Spent with Patient Total time spent providing and/or coordinating discharge services: Greater than 30 minutes - Discharge Medications Prescriptions: Nitroglycerin [Nitrostat] 0.4 mg SL Q5MIN PRN #1 bottle PRN Reason: Chest Pain Aspirin [Lo-Dose Aspirin EC] 81 mg PO DAILY #30 tablet. Atorvastatin [Lipitor] 40 mg PO HS #30 tablet Clopidogrel [Plavix] 75 mg PO DAILY #30 tablet Furosemide [Lasix] 40 mg PO DAILY #30 tablet Lisinopril 2.5 mg PO DAILY #30 tablet Magnesium Oxide [Magnesium] 400 mg PO BID #60 tablet Metoprolol Succinate [Toprol Xl] 50 mg PO DAILY #30 tab.er.24h Potassium Chloride 40 meq PO DAILY #30 tab.er.prt Warfarin [Coumadin] 2.5 mg PO AD 30 Days #60 tablet Home Medications: Amlodipine Besylate 10 mg PO DAILY 02/19/18 [History] Losartan/Hydrochlorothiazide [Hyzaar 100-25 Tablet] 1 tab PO DAILY 02/19/18 [History] Aspirin [Lo-Dose Aspirin EC] 81 mg PO DAILY #30 tablet. 02/20/18 [Rx] Atorvastatin [Lipitor] 40 mg PO HS #30 tablet 02/20/18 [Rx] Clopidogrel [Plavix] 75 mg PO DAILY #30 tablet 02/20/18 [Rx] Furosemide [Lasix] 40 mg PO DAILY #30 tablet 02/20/18 [Rx] Lisinopril 2.5 mg PO DAILY #30 tablet 02/20/18 [Rx] Magnesium Oxide [Magnesium] 400 mg PO BID #60 tablet 02/20/18 [Rx] Metoprolol Succinate [Toprol Xl] 50 mg PO DAILY #30 tab.er.24h 02/20/18 [Rx] Nitroglycerin [Nitrostat] 0.4 mg SL Q5MIN PRN #1 bottle 02/20/18 [Rx] Potassium Chloride 40 meq PO DAILY #30 tab.er.prt 02/20/18 [Rx] Warfarin [Coumadin] 2.5 mg PO AD 30 Days #60 tablet 02/20/18 [Rx] Allergies/Adverse Reactions: Allergy/AdvReac Type Severity Reaction Status Date / Time NSAIDS (Non-Steroidal Allergy See Verified 02/17/18 08:11 Anti-Inflamma Comments Penicillins Allergy See Verified 02/17/18 08:11 Comments Sulfa (Sulfonamide Allergy See Verified 02/17/18 08:11 Antibiotics) Comments Date of admission: 02/17/18 09:34 Primary care physician: PCP NONE Consults: 02/17/18 10:30 Consult to Cardiac Rehabilitation-Phase1 [CONS] Routine Comment: Reason for Consult: AMI Call Completed: Yes Consult to Cardiac Rehabilitation-Phase1 [CONS] Routine Comment: Reason for Consult: post op PCI Call Completed: Yes Consult to Nurse Navigator [CONS] Routine Comment: Discharging clinician: China Stern Anticipated date of discharge: 02/21/18 Physical Examination Vital Signs, Last 4 Hours Temp Pulse Resp BP Pulse Ox 02/21/18 10:55 98.1 F 83 15 94/47 92 General: Conversant, No Apparent Distress HEENT: Atraumatic, Normocephaly, Mucus Membranes Moist Neck: No JVD, Normal carotid pulses Cardiac: Reg Rate and Rhythm, Normal S1 and S2, No Murmur Lungs: Normal Breath Sounds, No Wheeze, Rales, Rhonchi Neuro: Alert and responsive, No focal deficits noted Abdomen: Soft, Non-Tender Skin: No rashes noted on visualized skin, Other (Right groin access site with mild ecchymosis, no hematoma. ) Musculoskeletal: No Chest Wall Tenderness Extremities: No Clubbing, No Cyanosis, No Edema, Normal Pulses - Patient Status Disposition: Home, Self-Care Condition: Fair Functional capacity at discharge: independent ambulation Overall status at discharge: patient is progressing back to baseline - Ambulatory Orders Ambulatory Orders: Prothrombin Time INR [COAG] Time Frame: 5 Days, Facility: [facility], Location: Lab - Discharge Instructions Follow Up With: NONE,PCP [Primary Care Provider] - Additional Instructions: RISK FACTORS: STOP SMOKING: If you smoke, STOP. Smoking or tobacco use significantly increases your risk of heart disease because nicotine causes the arteries to narrow or constrict. It also causes fats to stick to the artery. Your chances of having a heart attack are greatly increased if you continue to smoke. For more information, call the education line for smoking cessation 9-359-ZINWBIQ EAT A LOW FAT/CHOLESTEROL/SODIUM DIET: This diet may help reduce your chances of having a heart attack. LIFTING: Avoid lifting anything more than 10 pounds for 5-7 days Prior to straining, laughing, sneezing and/or coughing, apply manual pressure directly over insertion site. ACTIVITY: You may walk or climb stairs as tolerated You can resume sexual activity as tolerated In general, you are encouraged to engage in a minimum of 30 minutes or more of moderate intensity physical activity, such as brisk walking, daily or at least 3-4 times weekly BATHING Do not submerge the site into water (bath tub, hot tub, swimming pool) for 1 week. This can be a source for infection into the blood stream. You may shower after 24 hours SITE CARE: After 24 hours, you may remove the dressing and leave the site open to air. Keep the site clean and dry. Clean gently and pat dry. You can expect bruising and tenderness that gradually resolve within a week or two. Return to work as instructed per your physician Resume driving as instructed per physician Keep all scheduled follow up appointments Resume medications as instructed IMPORTANT: If prescribed a Platelet Aggregation Inhibitor such as, Plavix, Brilinta or Effient: Duration of therapy is minimum one year These medications are often used in combination with Aspirin in prevention of future heart attacks Never discontinue unless consult with your Foreclosure Home Inspector STROKE (CVA) Risk factors for a stroke are: Age, cigarette smoking, diabetes, excessive alcohol consumption, family history, high blood pressure, overweight, physical i nactivity, prior stroke, heart attack, diagnosis of carotid artery stenosis or other artery disease. Warning signs: Sudden numbness or weakness of the face, arm or leg; especially on one side of the body, sudden confusion, trouble speaking or understanding, sudden trouble seeing in one or both eyes, sudden trouble walking, dizziness, loss of balance or coordination, sudden severe headache with no cause. Call 911 or go to the Emergency Room. CONGESTIVE HEART FAILURE: If you have been diagnosed with Congestive Heart Failure (CHF) and your symptoms return, make an appointment with your physician Weigh yourself daily. Notify your physician if you have a weight gain of two or more pounds in one day or five or more pounds in one week. If you experience any difficulty breathing, please call 911 BLEEDING: Although the risk of bleeding is minimal, it can happen. If you have any bleeding from the site, apply firm pressure above the puncture site for 10-15 minutes. If the bleeding does not stop, continue manual pressure and call 911 Contact your physician if: You develop a fever greater than 101 degrees Fahrenheit Your site becomes reddened or has any drainage You have an increase in pain or burning at the site or if a large knot forms at the site. If you experience chest pain, shortness of breath, dizziness, or extreme tiredness, stop the activity and rest. Please notify your physicians office if you experience any of these symptoms and they are not relieved by rest please call 911! - Diet and Activity Activity: increase activity as tolerated (Follow restrictions as above) Diet: low fat, low cholesterol, low salt diet - VTE Reasons for not Prescribing Prophylaxis: Not indicated-Anticoagulated or INR therapeutic
[2018-02-21] MEDS ORDERED: *HR* Warfarin 2.5 MG TABLET PO ONE (18:00)
--- NOTE | 2018-02-21 20:57 | Electrocardiograph Report ---
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
--- NOTE | 2018-02-22 09:27 | Electrocardiograph Report ---
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
== END 2018-02-21 20:19 | disposition home or self-care (01) | DRG 246 ==
LOC: ICNU 09:34 → 2NENU 02-19 15:18
PROVIDERS: ADMIT Internal Medicine Interventional Cardiology; ATTEND Internal Medicine Interventional Cardiology